=== PATIENT | male | born 1955 | race Caucasian/White ===

== ENCOUNTER 2022-10-23 06:14 | Day surgery (SDC) | payer OTHER ==
[2022-10-23] VITALS (18 sets, daily range): BP systolic 88–162; BP diastolic 41–98
[~2022-10-23] VITALS: Ht 174 cm; Wt 117.0 kg
[~2022-10-23 06:14] MED LIST: MELO7.5 PO; NAPR220 PO; Percocet 5-3251 EACH PO
--- NOTE | 2022-10-23 07:30 | NUR ---
Ambulatory in Day Surgery with four point walker. Patient confirms NPO status and agrees with scheduled surgery. Pre-Op teaching done. Pt verbalizes understanding. Patient reports completing Chlorhexadine shower X5 prior to admission to hospital. Lungs clear T/O to Auscultation. Patient States Post-Procedure ride home has been arranged. History, Chart, Medications and Allergies reviewed before start of procedure.
--- NOTE | 2022-10-23 11:30 | NUR ---
ARRIVAL PATIENT TO ROOM 221 VIA BED. VSS ON RA. AQUACEL & POLAR PACK TO ANTERIOR RIGHT HIP, C/D/I. AQUACEL TO RLQ ABDOMEN, C/D/I. PATIENT REPORTS PAIN 4/10 TO RLE, HAS FULL SENSATION TO BLE, DENIES N/T T/O. A&O X4. LUNGS CLEAR. ORIENTED TO ROOM & CALL LIGHT. WATER, JELLO, & CRACKERS OFFERRED AT BEDSIDE. DISCUSSED PAIN MANAGMENT. FAMILY AT BEDSIDE. ALL PERSONS PRESENT DENY ANY SOURCE OF IGNITION AT THIS TIME.
[2022-10-23] MEDS ORDERED: Percocet 5-3251 EACH PO (13:38)
[2022-10-23] MEDS ORDERED: ASPI81CH PO (13:38)
--- NOTE | 2022-10-23 17:23 | NUR ---
DISCHARGE PT HAS CLEARED THERAPY. PAIN WELL CONTROLLED. EATING, DRINKING WELL. PT REPORTS VOIDING. DRSGS, SCRIPT, & POLAR PACK SENT w/ PT. ESCORTED OUT VIA W/C.
== END 2022-10-23 17:35 | disposition home or self-care (01) ==
LOC: ORSCMMR 06:14 → ORD 07:30 → ORSCMMR 07:30 → SURS 11:28 → ORSCMMR 17:35
PROVIDERS: Orthopaedic Surgery
PROC: 8E0Y0CZ Robotic Assisted Procedure of Lower Extremity, Open Approach (ICD-10-PCS; 2022-10-23)
PROC: 0SR90JZ Replacement of Right Hip Joint with Synthetic Substitute, Open Approach (ICD-10-PCS; principal; 2022-10-23 07:30)
DX: M16.11 Unilateral primary osteoarthritis, right hip (principal); M87.08 Idiopathic aseptic necrosis of bone, other site; E66.9 Obesity, unspecified; Z68.37 Body mass index [BMI] 37.0-37.9, adult; Z79.82 Long term (current) use of aspirin; Z79.899 Other long term (current) drug therapy
CPT/HCPCS: 27130; S2900; 72170; 82947; 97110; 97116; 97162; A9270; C1776; J0171; J0690; J0735; J1100; J1885; J2371; J2405; J2704; J2795; J3010; J7120